=== PATIENT | female | born 1960 | race Two or more races ===

== ENCOUNTER 2020-07-07 18:27 | Emergency (ER) | payer OTHER ==
[~2020-07-07] VITALS: Ht 157.5 cm; Wt 70.3 kg
[2020-07-07 18:29] VITALS: BP 127/82; Ht 157.5 cm; Wt 70.3 kg
== END 2020-07-07 20:35 | disposition home or self-care (01) ==
LOC: ED 18:27
DX: U07.1 COVID-19 (principal)